=== PATIENT | female | born 1990 | race Caucasian/White ===

== ENCOUNTER 2017-03-27 20:35 | Emergency (ER) | payer BC ==
--- NOTE | 2017-03-27 21:29 | EDM.PDOC ---
ED HPI ENT - General Chief Complaint: ENT Problem Stated Complaint: TOOTH PAIN Time Seen by Provider: 03/27/17 21:09 Source of Information: Reports: Patient History Limitations: Reports: No limitations - History of Present Illness INITIAL COMMENTS - FREE TEXT/NARRATIVE: History of present illness: [26-year-old female comes in complaining of dental pain. Patient was seen by the dentist and had 2 fillings with subsequent fracturing of the second one to an elective the second tooth. Patient continued to have pain and went back to the dentist where she was subsequently treated or dry socket and referred to and an deposit clerk] Review of systems: As per history of present illness and below otherwise all systems reviewed and negative. Past medical history: As per history of present illness and as reviewed below otherwise noncontributory. Surgical history: As per history of present illness and as reviewed below otherwise noncontributory. Social history: No reported history of drug or alcohol abuse. Family history: As per history of present illness and as reviewed below otherwise noncontributory. Physical exam: HEENT: Atraumatic, normocephalic, pupils reactive, negative for conjunctival pallor or scleral icterus, mucous membranes moist, throat clear, neck supple, nontender, trachea midline. Lungs: Clear to auscultation, breath sounds equal bilaterally, chest nontender. Heart: S1S2, regular, negative for clicks, rubs, or JVD. Abdomen: Soft, nondistended, nontender. Negative for masses or hepatosplenomegaly. Negative for costovertebral tenderness. Pelvis: Stable nontender. Genitourinary: Deferred. Rectal: Deferred. Extremities: Atraumatic, negative for cords or calf pain. Neurovascular unremarkable. Neuro: Awake, alert, oriented. Cranial nerves II through XII unremarkable. Cerebellum unremarkable. Motor and sensory unremarkable throughout. Exam nonfocal. Global assessment was benign save obvious tooth missing at 30 a partial fracture with repair on . Area 30 noted to look like it had remnants of tooth or filling matter in them M. swollen and angry patient indicates she is currently on doxycycline per the dentist. Diagnostics: [] Therapeutics: [] Impression: [Dental pain] Plan: [Payment coverage until it can be seen by dentist Tuesday or Tuesday] Definitive disposition and diagnosis as appropriate pending reevaluation and review of above. - Related Data Allergies/ADRs: Allergies Allergy/AdvReac Type Severity Reaction Status Date / Time Penicillins Allergy Rash Verified 03/27/17 20:42 Home Meds: Home Meds Clindamycin HCl [Cleocin HCl] 600 mg PO TID 03/27/17 [History] Past Medical History - Past Health History Medical/Surgical History: Denies Medical/Surgical History HEENT History: Reports: Other (see below) Other HEENT History: wears glasses Cardiovascular History: Reports: None Respiratory History: Reports: None Gastrointestinal History: Reports: GERD Genitourinary History: Reports: Renal calculus, STD, UTI, recurrent, Other (see below) Other Genitourinary History: HPV Musculoskeletal History: Reports: None Neurological History: Reports: None Psychiatric History: Reports: None Endocrine/Metabolic History: Reports: Obesity/BMI 30+ Hematologic History: Reports: None Immunologic History: Reports: None Oncologic (Cancer) History: Reports: None Dermatologic History: Reports: None - Past Surgical History Head Surgeries/Procedures: Reports: None GI Surgical History: Reports: Cholecystectomy, Hernia, abdominal Other GI Surgeries/Procedures: perirectal abcess x2 Social & Family History - Family History Family Medical History: Noncontributory - Tobacco Use Smoking Status *Q: Never Smoker - Caffeine Use Caffeine Use: Reports: Coffee - Recreational Drug Use Recreational Drug Use: No Drug Use in Last 12 Months: No Recreational Drug Type: Reports: Marijuana/Hashish ED ROS ENT - Review of Systems Review Of Systems: See Below (See history of present illness) ED EXAM, ENT - Physical Exam Exam: See Below (See history of present illness) Course - Vital Signs Last Recorded V/S: Last Vital Signs Temp 36.4 C 03/27/17 20:43 Pulse 69 03/27/17 20:43 Resp 20 03/27/17 20:43 BP 157/107 H 03/27/17 20:43 Pulse Ox 96 03/27/17 20:43 Departure - Departure Time of Disposition: 21:29 Disposition: Home, Self-Care 01 Condition: good Clinical Impression: Pain, dental Forms: ED Department Discharge Additional Instructions: The following information is given to patients seen in the emergency department who are being discharged to home. This information is to outline your options for follow-up care. We provide all patients seen in our emergency department with a follow-up referral. The need for follow-up, as well as the timing and circumstances, are variable depending upon the specifics of your emergency department visit. If you don't have a primary care physician on staff, we will provide you with a referral. We always advise you to contact your personal physician following an emergency department visit to inform them of the circumstance of the visit and for follow-up with them and/or the need for any referrals to a consulting specialist. The emergency department will also refer you to a specialist when appropriate. This referral assures that you have the opportunity for follow-up care with a specialist. All of these measure are taken in an effort to provide you with optimal care, which includes your follow-up. Under all circumstances we always encourage you to contact your private physician who remains a resource for coordinating your care. When calling for follow-up care, please make the office aware that this follow-up is from your recent emergency room visit. If for any reason you are refused follow-up, please contact the [facility] Emergency Department at and asked to speak to the emergency department charge nurse. Take pain medication as discussed Continue on the antibiotics as prescribed Followup with dentist and or dental specialist as discussed is imperative for closure of this problem. If definitive treatment is not obtained we'll continue to have pain and potential for infection. Followup with ED as needed as discussed
[2017-03-27] MEDS ORDERED: Benzocaine 20% Topical Spray UD MUCMEM ONE (21:34)
[2017-03-27] MEDS ORDERED: Lidocaine 2% Viscous Solution 15 ML Cup PO ONE (21:34)
[2017-03-27 21:42] VITALS: BP 139/97
== END 2017-03-27 21:40 | disposition home or self-care (01) ==
LOC: MW.ED 20:35
DX: K08.89 Other specified disorders of teeth and supporting structures (principal); K21.9 Gastro-esophageal reflux disease without esophagitis; E66.9 Obesity, unspecified; Z87.440 Personal history of urinary (tract) infections; Z88.0 Allergy status to penicillin
CPT/HCPCS: 99282; A9270; 99283

== ENCOUNTER 2017-03-31 22:31 | Emergency (ER) | payer BC ==
[2017-03-31 23:02] VITALS: BP 151/91
--- NOTE | 2017-03-31 23:46 | EDM.PDOC ---
ED HPI RENAL/ - General Chief Complaint: Flank Pain Stated Complaint: PT HAS UTI Time Seen by Provider: 03/31/17 23:00 Source of Information: Reports: Patient History Limitations: Reports: No limitations - History of Present Illness INITIAL COMMENTS - FREE TEXT/NARRATIVE: HISTORY AND PHYSICAL: History of present illness: [6-year-old female with no prior history of kidney stone now presents emergency department complaining of urinary frequency. Patient thinks she has a urinary tract infection which she has had before and is familiar with. she also describes bilateral low back pain she is concerned she might have a kidney infection. Denies fevers chills sweats or shaking chills. Low back is more sore with movement. She is not having colicky pain. Denies abdominal or pelvic pain. No vaginal discharge or suprapubic pain.] Review of systems: As per history of present illness and below otherwise all systems reviewed and negative. Past medical history: As per history of present illness and as reviewed below otherwise noncontributory. Surgical history: As per history of present illness and as reviewed below otherwise noncontributory. Social history: No reported history of drug or alcohol abuse. Family history: As per history of present illness and as reviewed below otherwise noncontributory. Physical exam: HEENT: Atraumatic, normocephalic, pupils reactive, negative for conjunctival pallor or scleral icterus, mucous membranes moist, throat clear, neck supple, nontender, trachea midline. Lungs: Clear to auscultation, breath sounds equal bilaterally, chest nontender. Heart: S1S2, regular, negative for clicks, rubs, or JVD. Abdomen: Soft, nondistended, nontender. Negative for masses or hepatosplenomegaly. Mild bilateral lumbar tenderness. No spinal T. Genitourinary: Deferred. Rectal: Deferred. Extremities: Atraumatic, negative for cords or calf pain. Neurovascular unremarkable. Neuro: Awake, alert, oriented. Cranial nerves grossly unremarkable. Cerebellum unremarkable. Motor and sensory unremarkable throughout. Exam nonfocal. Diagnostics: [CT urinary tract with multiple punctate intrarenal stones but no ureterolithiasis or urinary tract abnormality other] Therapeutics: [] Impression: [] Plan: [Signs and symptoms consistent with possible UTI/pyelonephritis versus less likely ureterolithiasis with renal colic. UA negative for infection or hematuria. CT negative for ureterolithiasis. Default diagnosis musculoskeletal low back pain as patient is benign abdomen and pelvis and no vaginal discharge. Not . Patient aware to use NSAIDs and followup with PCP. No further workup or treatment indicated. Patient agrees with outpatient followup. Strict return precautions given] Definitive disposition and diagnosis as appropriate pending reevaluation and review of above. - Related Data Allergies/ADRs: Allergies Allergy/AdvReac Type Severity Reaction Status Date / Time Penicillins Allergy Rash Verified 03/31/17 22:59 Home Meds: Home Meds Clindamycin HCl [Cleocin HCl] 600 mg PO TID 03/27/17 [History] oxyCODONE HCl/Acetaminophen [Percocet 5-325 mg Tablet] 1 tab PO ASDIRECTED 03/31 [History] Past Medical History - Past Health History Medical/Surgical History: Denies Medical/Surgical History HEENT History: Reports: Other (see below) Other HEENT History: wears glasses Cardiovascular History: Reports: None Respiratory History: Reports: None Gastrointestinal History: Reports: GERD Genitourinary History: Reports: Renal calculus, STD, UTI, recurrent, Other (see below) Other Genitourinary History: HPV CONSERVATION COORDINATOR History: Reports: None Musculoskeletal History: Reports: None Neurological History: Reports: None Psychiatric History: Reports: None Endocrine/Metabolic History: Reports: Obesity/BMI 30+ Hematologic History: Reports: None Immunologic History: Reports: None Oncologic (Cancer) History: Reports: None Dermatologic History: Reports: None - Infectious Disease History Infectious Disease History: Reports: None - Past Surgical History Head Surgeries/Procedures: Reports: None GI Surgical History: Reports: Cholecystectomy, Hernia, abdominal Other GI Surgeries/Procedures: perirectal abcess x2 Social & Family History - Family History Family Medical History: Noncontributory - Tobacco Use Smoking Status *Q: Never Smoker - Caffeine Use Caffeine Use: Reports: Coffee - Recreational Drug Use Recreational Drug Use: No Drug Use in Last 12 Months: No Recreational Drug Type: Reports: Marijuana/Hashish ED ROS GENERAL - Review of Systems Review Of Systems: See Below (Per history of present illness) ED EXAM, RENAL/ - Physical Exam Exam: See Below (History of present illness) Course - Vital Signs Last Recorded V/S: Last Vital Signs Temp 36.1 C 03/31/17 22:40 Pulse 69 03/31/17 22:40 Resp 16 03/31/17 22:40 BP 151/91 H 03/31/17 22:40 Pulse Ox 98 03/31/17 22:40 - Orders/Labs/Meds Orders: Active Orders 24 hr Category Date Time Status Abdomen Pelvis wo Cont [CT] Stat Exams 03/31/17 23:34 Taken Labs: Laboratory Tests 03/31/17 03/31/17 Range/Units 22:50 22:50 Urine Color YELLOW Urine Appearance CLEAR Urine pH 6.0 (5.0-8.0) Ur Specific [place] <= 1.005 (1.001-1.035) Urine Protein NEGATIVE (NEGATIVE) mg/dL Urine Glucose (UA) NEGATIVE (NEGATIVE) mg/dL Urine Ketones NEGATIVE (NEGATIVE) mg/dL Urine Occult Blood TRACE-INTACT (NEGATIVE) Urine Nitrite NEGATIVE (NEGATIVE) Urine Bilirubin NEGATIVE (NEGATIVE) Urine Urobilinogen 0.2 (<2.0) EU/dL Ur Leukocyte Esterase NEGATIVE (NEGATIVE) Urine RBC 0-2 (0-2/HPF) Urine WBC 0-1 (0-5/HPF) Ur Epithelial Cells OCCASIONAL (NONE-FEW) Urine Bacteria RARE (NEGATIVE) Urine HCG, Qual NEGATIVE (NEGATIVE) Departure - Departure Time of Disposition: 00:33 Disposition: Home, Self-Care 01 Condition: good Clinical Impression: Low back pain, Renal lithiasis Instructions: Kidney Stones, [id number] Referrals: PCP,None [Primary Care Provider] - Forms: ED Department Discharge Additional Instructions: It appears that your pain today as a result of musculoskeletal low back pain. Take 800 mg ibuprofen every 6 hours as needed for pain. You do have some very small kidney stones in both kidneys but they do not cause pain while in the kidneys and there is no evidence that any of these are passing. Followup with your DrMaria Alejandra in one to 2 days and return immediately for new severe or worsening symptoms - My Orders Last 24 Hours: My Active Orders 03/31/17 23:34 Abdomen Pelvis wo Cont [CT] Stat - Assessment/Plan Last 24 Hours: My Active Orders 03/31/17 23:34 Abdomen Pelvis wo Cont [CT] Stat
--- NOTE | 2017-04-01 16:16 | CT ---
EXAM DATE: 03/31/17 PATIENT'S AGE: 26 Patient: HIREN MATTHEWS Facility: [place], [place] Site . Site : 1990 Study: CT Abdomen/Pelvis WO CONT [id number]/5/2017 12:00:08 AM Ordering Physician: Will Sparks Final Report: INDICATION: Right flank pain with dysuria TECHNIQUE: CT abdomen and pelvis without contrast. COMPARISON: 09/21/2016 FINDINGS: Lower chest: Unremarkable. Liver: Unremarkable. Spleen: Unremarkable. Pancreas: Unremarkable. Gallbladder and bile ducts: Evidence of prior cholecystectomy. Kidneys: Stable punctate nonobstructing bilateral renal calculi. Adrenal glands: Unremarkable. GI tract: Unremarkable. Appendix is normal. Vascular structures: Unremarkable. Lymph nodes: Unremarkable. Miscellaneous: Fat containing umbilical hernia. No free air or significant free fluid. Pelvic Organs: Unremarkable. Bones: Unremarkable for age. IMPRESSION: Stable bilateral punctate nonobstructing renal calculi. No hydronephrosis or hydroureter. Normal urinary bladder. Evidence of prior cholecystectomy. Dictated by Neftali Bellamy MD @ 04/01/2017 12:19:53 AM Dictated by: Neftali Bellamy MD @ 04/01/2017 00:20:03 (Electronic Signature) Report Signed by Proxy. [facility]
== END 2017-04-01 00:44 | disposition home or self-care (01) ==
LOC: MW.ED 22:31
DX: N20.0 Calculus of kidney (principal); E66.9 Obesity, unspecified; K21.9 Gastro-esophageal reflux disease without esophagitis; Z88.0 Allergy status to penicillin; Z90.49 Acquired absence of other specified parts of digestive tract; Z68.41 Body mass index [BMI] 40.0-44.9, adult
CPT/HCPCS: 74176; 74176-26; 81001; 81025; 99283; 99284-25

== ENCOUNTER 2018-05-06 17:47 | Emergency (ER) | payer BC ==
[2018-05-06] MEDS ORDERED: Sodium Chloride 0.9% 1,000 ML IV ONE (18:12)
--- NOTE | 2018-05-06 18:14 | EDM.PDOC ---
ED HPI GENERAL MEDICAL PROBLEM - General Chief Complaint: Back Pain or Injury Stated Complaint: DIZZY AND BACK PAIN Time Seen by Provider: 05/06/18 18:09 - History of Present Illness INITIAL COMMENTS - FREE TEXT/NARRATIVE: HISTORY AND PHYSICAL: History of present illness: Patient 27-year-old female presents with a concern of cough and cold symptoms and discomfort with urination she had an episode of near-syncope when in the bathroom today she denies chest pain palpitations or associated trauma. No fever or chills. Review of systems: As per history of present illness and below otherwise all systems reviewed and negative. Past medical history: As per history of present illness and as reviewed below otherwise noncontributory. Surgical history: As per history of present illness and as reviewed below otherwise noncontributory. Social history: No reported history of drug or alcohol abuse. Family history: As per history of present illness and as reviewed below otherwise noncontributory. Physical exam: HEENT: Atraumatic, normocephalic, pupils reactive, negative for conjunctival pallor or scleral icterus, mucous membranes moist, throat clear, neck supple, nontender, trachea midline. Lungs: Clear to auscultation, breath sounds equal bilaterally, chest nontender. Heart: S1S2, regular, negative for clicks, rubs, or JVD. Abdomen: Soft, nondistended, nontender. Negative for masses or hepatosplenomegaly. Negative for costovertebral tenderness. Pelvis: Stable nontender. Genitourinary: Deferred. Rectal: Deferred. Extremities: Atraumatic, negative for cords or calf pain. Neurovascular unremarkable. Neuro: Awake, alert, oriented. Cranial nerves II through XII unremarkable. Cerebellum unremarkable. Motor and sensory unremarkable throughout. Exam nonfocal. Diagnostics: CBC CMP troponin chest x-ray UA hCG urine drug screen urine culture and sensitivity EKG orthostatic vitals Therapeutics: Normal saline 1 L bolus Impression: #1 pneumonitis #2 near-syncope probable vasovagal episode #3 rule out urinary tract infection Definitive disposition and diagnosis as appropriate pending reevaluation and review of above. Lower Back Pain Score (Numeric/FACES): 7 - Related Data Allergies Allergy/AdvReac Type Severity Reaction Status Date / Time Penicillins Allergy Rash Verified 05/06/18 17:59 Home Meds: Home Meds . 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 Musculoskeletal History: Reports: None Neurological History: Reports: None Psychiatric History: Reports: None Endocrine/Metabolic History: Reports: Obesity/BMI 30+ Hematologic History: Reports: None Immunologic History: Reports: None Oncologic (Cancer) History: Reports: None Dermatologic History: Reports: None - Infectious Disease History Infectious Disease History: Reports: None - Past Surgical History Head Surgeries/Procedures: Reports: None GI Surgical History: Reports: Cholecystectomy, Hernia, Abdominal Social & Family History - Family History Family Medical History: Noncontributory - Tobacco Use Smoking Status *Q: Never Smoker Second Hand Smoke Exposure: No - Caffeine Use Caffeine Use: Reports: None - Recreational Drug Use Recreational Drug Use: No ED ROS GENERAL - Review of Systems Review Of Systems: ROS reveals no pertinent complaints other than HPI. ED EXAM, GENERAL - Physical Exam Exam: See Below (Dictation) Course - Vital Signs Last Recorded V/S: Last Vital Signs Temp 36.2 C 05/06/18 17:57 Pulse 56 L 05/06/18 17:57 Resp 18 05/06/18 17:57 BP 131/80 05/06/18 17:57 Pulse Ox 93 L 05/06/18 17:57 - Orders/Labs/Meds Orders: Active Orders 24 hr Category Date Time Status EKG Documentation Completion [RC] STAT Care 05/06/18 18:11 Active Chest 1V Frontal [CR] Stat Exams 05/06/18 18:12 Taken CULTURE URINE [RM] Stat Lab 05/06/18 18:24 Ordered DRUG SCREEN, URINE [URCHEM] Stat Lab 05/06/18 18:10 Ordered HCG QUANTITATIVE,SERUM [CHEM] Stat Lab 05/06/18 18:18 Received UA W/MICROSCOPIC [URIN] Stat Lab 05/06/18 18:10 Ordered Labs: Laboratory Tests 05/06/18 05/06/18 05/06/18 Range/Units 18:10 18:10 18:18 WBC 9.27 (4.0-11.0) K/uL RBC 5.49 (4.30-5.90) M/uL Hgb 14.7 (12.0-16.0) g/dL Hct 43.7 (36.0-46.0) % MCV 79.6 L (80.0-98.0) fL MCH 26.8 L (27.0-32.0) pg MCHC 33.6 (31.0-37.0) g/dL RDW Std Deviation 39.4 (28.0-62.0) fl RDW Coeff of Zac 14 (11.0-15.0) % Plt Count 271 (150-400) K/uL MPV 9.60 (7.40-12.00) fL Neut % (Auto) 71.2 (48.0-80.0) % Lymph % (Auto) 16.4 (16.0-40.0) % [place] % (Auto) 7.7 (0.0-15.0) % Eos % (Auto) 4.3 (0.0-7.0) % Baso % (Auto) 0.4 (0.0-1.5) % Neut # (Auto) 6.6 H (1.4-5.7) K/uL Lymph # (Auto) 1.5 (0.6-2.4) K/uL [place] # (Auto) 0.7 (0.0-0.8) K/uL Eos # (Auto) 0.4 (0.0-0.7) K/uL Baso # (Auto) 0.0 (0.0-0.1) K/uL Nucleated RBC % 0.0 /100WBC Nucleated RBCs # 0 K/uL Sodium (136-145) mmol/L Potassium (3.5-5.1) mmol/L Chloride (98-107) mmol/L Carbon Dioxide (21.0-32.0) mmol/L BUN (7.0-18.0) mg/dL Creatinine (0.6-1.0) mg/dL Est Cr Clr Drug Dosing mL/min Estimated GFR (MDRD) ml/min Glucose (74-106) mg/dL Calcium (8.5-10.1) mg/dL Total Bilirubin (0.2-1.0) mg/dL AST (15-37) IU/L ALT (14-63) IU/L Alkaline Phosphatase (46-116) U/L Troponin I (0.000-0.056) ng/mL Total Protein (6.4-8.2) g/dL Albumin (3.4-5.0) g/dL Globulin (2.0-3.5) g/dL Albumin/Globulin Ratio (1.3-2.8) Urine Color YELLOW Urine Appearance SLT CLOUDY Urine pH 6.0 (5.0-8.0) Ur Specific [place] 1.020 (1.001-1.035) Urine Protein NEGATIVE (NEGATIVE) mg/dL Urine Glucose (UA) NEGATIVE (NEGATIVE) mg/dL Urine Ketones NEGATIVE (NEGATIVE) mg/dL Urine Occult Blood NEGATIVE (NEGATIVE) Urine Nitrite NEGATIVE (NEGATIVE) Urine Bilirubin NEGATIVE (NEGATIVE) Urine Urobilinogen 0.2 (<2.0) EU/dL Ur Leukocyte Esterase SMALL (NEGATIVE) Urine RBC 0-2 (0-2/HPF) Urine WBC 0-4 (0-5/HPF) Ur Epithelial Cells MODERATE (NONE-FEW) Urine Bacteria 1+ H (NEGATIVE) Urinalysis Comment Urine Opiates Screen NEGATIVE (NEGATIVE) Ur Oxycodone Screen NEGATIVE (NEGATIVE) Urine Methadone Screen NEGATIVE (NEGATIVE) Ur Barbiturates Screen NEGATIVE (NEGATIVE) Ur Phencyclidine Scrn NEGATIVE (NEGATIVE) Ur Amphetamine Screen NEGATIVE (NEGATIVE) U Methamphetamines Scrn NEGATIVE (NEGATIVE) U Benzodiazepines Scrn NEGATIVE (NEGATIVE) U Cocaine Metab Screen NEGATIVE (NEGATIVE) U Marijuana (THC) Screen NEGATIVE (NEGATIVE) 05/06/18 Range/Units 18:18 WBC (4.0-11.0) K/uL RBC (4.30-5.90) M/uL Hgb (12.0-16.0) g/dL Hct (36.0-46.0) % MCV (80.0-98.0) fL MCH (27.0-32.0) pg MCHC (31.0-37.0) g/dL RDW Std Deviation (28.0-62.0) fl RDW Coeff of Zac (11.0-15.0) % Plt Count (150-400) K/uL MPV (7.40-12.00) fL Neut % (Auto) (48.0-80.0) % Lymph % (Auto) (16.0-40.0) % [place] % (Auto) (0.0-15.0) % Eos % (Auto) (0.0-7.0) % Baso % (Auto) (0.0-1.5) % Neut # (Auto) (1.4-5.7) K/uL Lymph # (Auto) (0.6-2.4) K/uL [place] # (Auto) (0.0-0.8) K/uL Eos # (Auto) (0.0-0.7) K/uL Baso # (Auto) (0.0-0.1) K/uL Nucleated RBC % /100WBC Nucleated RBCs # K/uL Sodium 138 (136-145) mmol/L Potassium 3.8 (3.5-5.1) mmol/L Chloride 103 (98-107) mmol/L Carbon Dioxide 26.1 (21.0-32.0) mmol/L BUN 10 (7.0-18.0) mg/dL Creatinine 1.0 (0.6-1.0) mg/dL Est Cr Clr Drug Dosing 81.45 mL/min Estimated GFR (MDRD) > 60.0 ml/min Glucose 102 (74-106) mg/dL Calcium 8.8 (8.5-10.1) mg/dL Total Bilirubin 0.5 (0.2-1.0) mg/dL AST 19 (15-37) IU/L ALT 35 (14-63) IU/L Alkaline Phosphatase 103 (46-116) U/L Troponin I < 0.050 (0.000-0.056) ng/mL Total Protein 7.1 (6.4-8.2) g/dL Albumin 3.2 L (3.4-5.0) g/dL Globulin 3.9 H (2.0-3.5) g/dL Albumin/Globulin Ratio 0.8 L (1.3-2.8) Urine Color Urine Appearance Urine pH (5.0-8.0) Ur Specific [place] (1.001-1.035) Urine Protein (NEGATIVE) mg/dL Urine Glucose (UA) (NEGATIVE) mg/dL Urine Ketones (NEGATIVE) mg/dL Urine Occult Blood (NEGATIVE) Urine Nitrite (NEGATIVE) Urine Bilirubin (NEGATIVE) Urine Urobilinogen (<2.0) EU/dL Ur Leukocyte Esterase (NEGATIVE) Urine RBC (0-2/HPF) Urine WBC (0-5/HPF) Ur Epithelial Cells (NONE-FEW) Urine Bacteria (NEGATIVE) Urinalysis Comment Urine Opiates Screen (NEGATIVE) Ur Oxycodone Screen (NEGATIVE) Urine Methadone Screen (NEGATIVE) Ur Barbiturates Screen (NEGATIVE) Ur Phencyclidine Scrn (NEGATIVE) Ur Amphetamine Screen (NEGATIVE) U Methamphetamines Scrn (NEGATIVE) U Benzodiazepines Scrn (NEGATIVE) U Cocaine Metab Screen (NEGATIVE) U Marijuana (THC) Screen (NEGATIVE) Meds: Medications Discontinued Medications Generic Name Dose Route Start Last Admin Trade Name Freq PRN Reason Stop Dose Admin Sodium Chloride 1,000 mls @ 999 mls/hr 05/06/18 18:12 05/06/18 18:21 Normal Saline IV 05/06/18 19:12 999 mls/hr STAT ONE Administration Departure - Departure Time of Disposition: 19:20 Disposition: Home, Self-Care 01 Condition: Good Clinical Impression: Vasovagal episode, Tracheobronchitis - Discharge Information Referrals: PCP,None [Primary Care Provider] - Forms: ED Department Discharge Additional Instructions: The following information is given to patients seen in the emergency department who are being discharged to home. This information is to outline your options for follow-up care. We provide all patients seen in our emergency department with a follow-up referral. The need for follow-up, as well as the timing and circumstances, are variable depending upon the specifics of your emergency department visit. If you don't have a primary care physician on staff, we will provide you with a referral. We always advise you to contact your personal physician following an emergency department visit to inform them of the circumstance of the visit and for follow-up with them and/or the need for any referrals to a consulting specialist. The emergency department will also refer you to a specialist when appropriate. This referral assures that you have the opportunity for followup care with a specialist. All of these measure are taken in an effort to provide you with optimal care, which includes your followup. Under all circumstances we always encourage you to contact your private physician who remains a resource for coordinating your care. When calling for followup care, please make the office aware that this follow-up is from your recent emergency room visit. If for any reason you are refused follow-up, please contact the [facility] emergency department at and asked to speak to the emergency department charge nurse. The overall as prescribed push fluids follow up primary medical doctor as needed as discussed and return as needed as discussed - My Orders Last 24 Hours: My Active Orders 05/06/18 18:10 DRUG SCREEN, URINE [URCHEM] Stat UA W/MICROSCOPIC [URIN] Stat 05/06/18 18:11 EKG Documentation Completion [RC] STAT 05/06/18 18:12 Chest 1V Frontal [CR] Stat 05/06/18 18:18 HCG QUANTITATIVE,SERUM [CHEM] Stat 05/06/18 18:24 CULTURE URINE [RM] Stat - Assessment/Plan Last 24 Hours: My Active Orders 05/06/18 18:10 DRUG SCREEN, URINE [URCHEM] Stat UA W/MICROSCOPIC [URIN] Stat 05/06/18 18:11 EKG Documentation Completion [RC] STAT 05/06/18 18:12 Chest 1V Frontal [CR] Stat 05/06/18 18:18 HCG QUANTITATIVE,SERUM [CHEM] Stat 05/06/18 18:24 CULTURE URINE [RM] Stat
[2018-05-06 18:52] LABS: CHLORIDE,CL 103 mmol/L (98-107); SODIUM,NA 138 mmol/L (136-145)
[2018-05-06 19:44] VITALS: BP 151/99
--- NOTE | 2018-05-08 14:49 | CR ---
EXAM DATE: 05/06/18 PATIENT'S AGE: 27 Patient: HIREN CASSIE Facility: [place], [place] Site . Site : 1990 Study: XRay Chest [id number]/9/2018 7:18:15 PM Ordering Physician: Puja Sparks Final Report: INDICATION: PAIN AND SHORTNESS OF BREATH. TECHNIQUE: Chest radiograph 1 view COMPARISON: None FINDINGS: Cardiovascular and mediastinum: The heart silhouette is normal in size and morphology. The mediastinum is normal in appearance. Lungs and pleural spaces: Both lungs are unremarkable in appearance. No sign of pleural effusion seen. No pneumothorax is identified. Bones and soft tissues: No significant findings. IMPRESSION: 1. No acute cardiopulmonary disease is seen. Dictated by Viraj Rosen MD @ 05/06/2018 7:44:24 PM Dictated by: Viraj Rosen MD @ 05/06/2018 19:44:30 (Electronic Signature) Report Signed by Proxy. [facility]
== END 2018-05-06 19:47 | disposition home or self-care (01) ==
LOC: MW.ED 17:47
DX: J18.9 Pneumonia, unspecified organism (principal); J40 Bronchitis, not specified as acute or chronic; R55 Syncope and collapse; Z88.0 Allergy status to penicillin
CPT/HCPCS: 36415; 71045; 80053; 80305; 81001; 84484; 84702; 85025; 87086; 93005; 96360; 99284; J7040; 99283

== ENCOUNTER 2018-07-08 10:47 | Emergency (ER) | payer BC ==
--- NOTE | 2018-07-08 10:51 | EDM.PDOC ---
ED HPI GENERAL MEDICAL PROBLEM - General Stated Complaint: PAIN IN LOWER BACK. Time Seen by Provider: 07/08/18 10:50 Source of Information: Reports: Patient History Limitations: Reports: No Limitations - History of Present Illness INITIAL COMMENTS - FREE TEXT/NARRATIVE: HISTORY AND PHYSICAL: History of present illness: Patient is a 27-year-old female who presents to the emergency room today with complaints of left low back pain that radiates down the left gluteal all the way into her ankle. She was seen in the emergency room on 07/04/2018 for this pain and was diagnosed with sciatica. She was given prescription for tramadol and Flexeril which she states has not improved her discomfort. She states "I'm at a point where he just can't stand it anymore". She has not fallen, injured or had any trauma to the affected area. Has been eating and drinking appropriately. No change in urinary or bowel habits. Denies any fever, chills, chest pain, shortness of breath or cough. Review of systems: As per history of present illness and below otherwise all systems reviewed and negative. Past medical history: As per history of present illness and as reviewed below otherwise noncontributory. Surgical history: As per history of present illness and as reviewed below otherwise noncontributory. Social history: No reported history of drug or alcohol abuse. Family history: As per history of present illness and as reviewed below otherwise noncontributory. Physical exam: General: Well-developed and well-nourished 27-year-old female. Alert and oriented. Nontoxic appearing and in no acute distress. HEENT: Atraumatic, normocephalic, pupils equal and reactive bilaterally, negative for conjunctival pallor or scleral icterus, mucous membranes moist, throat clear, neck supple, nontender, trachea midline. No drooling or trismus noted. No meningeal signs Lungs: Clear to auscultation, breath sounds equal bilaterally, chest nontender. Heart: S1S2, regular rate and rhythm without overt murmur Abdomen: Soft, nondistended, nontender. Negative for masses or hepatosplenomegaly. Negative for costovertebral tenderness. Pelvis: Stable nontender. Genitourinary: Deferred. Rectal: Deferred. Skin: Intact, warm, dry. No lesions or rashes noted. Extremities: Atraumatic, negative for cords or calf pain. Neurovascular unremarkable. C-Spine/Back: No pinpoint vertebral tenderness upon palpation. No crepitus, step -offs or obvious deformities. She does have some paraspinous muscle discomfort with palpation to left lumbar region into the left glute. No urinary or fecal incontinence. Denies any numbness or tingling to her distal extremities. Patient is ambulatory into the emergency room. Able to walk on heels and toes without difficulty. Neuro: Awake, alert, oriented. Cranial nerves II through XII unremarkable. Cerebellum unremarkable. Motor and sensory unremarkable throughout. Exam nonfocal. Notes: CT of the lumbar spine shows no fractures with normal height and alignment of the vertebral bodies. There is mild intravertebral disc [place] at L5-S1. This information was shared with the patient. She declines to give a urine at this time. Patient states she does have some improvement with the IM medications. Will discharge patient with supportive care measures. Diagnostics: UA, Urine (declines), lumbar CT Therapeutics: Dilaudid Prescription: Diclofenac 75mg BID [place] PRN (Disp #20) Medrol Dosepak Impression: Sciatica, Left Plan: 1. Rest and ice painful areas. Gentle stretching to the low back. Rest of flat firm surface. 2. Take medications as directed. Do not take any additional NSAIDs such as Ibuprofen or Aleve with the Diclofenac. Take with food. [place] may cause drowsiness, so do not take while driving or needing to be functioning outside of the house. 3. Follow up with your primary care provider in the next few days. Return to the ED as needed and as discussed. Definitive disposition and diagnosis as appropriate pending reevaluation and review of above. Left Lower Back Pain Score (Numeric/FACES): 10 - Related Data Allergies Allergy/AdvReac Type Severity Reaction Status Date / Time Penicillins Allergy Rash Verified 07/08/18 11:07 Home Meds: Home Meds Cyclobenzaprine [Flexeril] 10 mg PO BID PRN #12 tab 07/04/18 [Rx] traMADol HCl [Tramadol HCl] 50 mg PO Q6H PRN #16 tablet 07/04/18 [Rx] Past Medical History - Past Health History Medical/Surgical History: Denies Medical/Surgical History HEENT History: Reports: Other (See Below) Other HEENT History: wears glasses Cardiovascular History: Reports: None Respiratory History: Reports: None Gastrointestinal History: Reports: GERD Genitourinary History: Reports: Renal Calculus, STD, UTI, Recurrent, Other (See Below) Other Genitourinary History: HPV 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 Musculoskeletal History: Reports: None Neurological History: Reports: None Psychiatric History: Reports: None Endocrine/Metabolic History: Reports: Obesity/BMI 30+ Hematologic History: Reports: None Immunologic History: Reports: None Oncologic (Cancer) History: Reports: None Dermatologic History: Reports: None - Infectious Disease History Infectious Disease History: Reports: None - Past Surgical History Head Surgeries/Procedures: Reports: None GI Surgical History: Reports: Cholecystectomy, Hernia, Abdominal, Other (See Below) Other GI Surgeries/Procedures: perirectal cyst x2 Social & Family History - Family History Family Medical History: Noncontributory Psychiatric: Reports: Bipolar, Schizophrenia - Caffeine Use Caffeine Use: Reports: Coffee, Energy Drinks, Soda, Tea ED ROS GENERAL - Review of Systems Review Of Systems: ROS reveals no pertinent complaints other than HPI. ED EXAM,LOWER BACK PAIN/INJURY - Physical Exam Exam: See Below (See dictation) Course - Vital Signs Last Recorded V/S: Last Vital Signs Temp 97.5 F 07/08/18 11:04 Pulse 80 07/08/18 11:04 Resp 18 07/08/18 11:04 BP 146/92 H 07/08/18 11:04 Pulse Ox 97 07/08/18 11:04 - Orders/Labs/Meds Orders: Active Orders 24 hr Category Date Time Status Lumbar Spine wo Cont [CT] Stat Exams 07/08/18 11:13 Taken UA W/MICROSCOPIC [URIN] Stat Lab 07/08/18 10:50 Ordered Meds: Medications Discontinued Medications Generic Name Dose Route Start Last Admin Trade Name Freq PRN Reason Stop Dose Admin Hydromorphone HCl 1 mg 07/08/18 11:13 07/08/18 11:23 Dilaudid IM 07/08/18 11:14 1 mg ONETIME ONE Administration Methylprednisolone Sodium Succinate 125 mg 07/08/18 11:59 Solu-Medrol IM 07/08/18 12:00 ONETIME ONE Departure - Departure Time of Disposition: 12:54 Disposition: Home, Self-Care 01 Clinical Impression: Sciatica, left side - Discharge Information Instructions: Sciatica, [id number] Referrals: PCP,None [Primary Care Provider] - Additional Instructions: The following information is given to patients seen in the emergency department who are being discharged to home. This information is to outline your options for follow-up care. We provide all patients seen in our emergency department with a follow-up referral. The need for follow-up, as well as the timing and circumstances, are variable depending upon the specifics of your emergency department visit. If you don't have a primary care physician on staff, we will provide you with a referral. We always advise you to contact your personal physician following an emergency department visit to inform them of the circumstance of the visit and for follow-up with them and/or the need for any referrals to a consulting specialist. The emergency department will also refer you to a specialist when appropriate. This referral assures that you have the opportunity for follow-up care with a specialist. All of these measure are taken in an effort to provide you with optimal care, which includes your follow-up. Under all circumstances we always encourage you to contact your private physician who remains a resource for coordinating your care. When calling for follow-up care, please make the office aware that this follow-up is from your recent emergency room visit. If for any reason you are refused follow-up, please contact the [facility] Emergency Department at and asked to speak to the emergency department charge nurse. [facility] [address] [place] [id number] 1. Rest and ice painful areas. Gentle stretching to the low back. Rest of flat firm surface. 2. Take medications as directed. Do not take any additional NSAIDs such as Ibuprofen or Aleve with the Diclofenac. Take with food. [place] may cause drowsiness, so do not take while driving or needing to be functioning outside of the house. 3. Follow up with your primary care provider in the next few days. Return to the ED as needed and as discussed. - My Orders Last 24 Hours: My Active Orders 07/08/18 10:50 UA W/MICROSCOPIC [URIN] Stat 07/08/18 11:13 Lumbar Spine wo Cont [CT] Stat - Assessment/Plan Last 24 Hours: My Active Orders 07/08/18 10:50 UA W/MICROSCOPIC [URIN] Stat 07/08/18 11:13 Lumbar Spine wo Cont [CT] Stat
[2018-07-08 11:07] VITALS: BP 146/92
[2018-07-08] MEDS ORDERED: HYDROmorphone 2 MG/ML SDV IM ONE (11:13)
[2018-07-08] MEDS ORDERED: methylPREDNISolone Sodium Succinate 125 MG/2 ML SDV IM ONE (11:59)
--- NOTE | 2018-07-10 17:01 | CT ---
EXAM DATE: 07/08/18 PATIENT'S AGE: 27 Patient: HIREN MATTHEWS Facility: [place], [place] Site . Site : 1990 Study: CT Spine Lumbar [id number]/11/2018 12:06:06 PM Ordering Physician: Doctor Nguyen Final Report: INDICATION: Low back pain, left-sided lumbar radiculopathy. TECHNIQUE: CT of the lumbar spine was performed according to standard protocol without intravenous contrast. COMPARISON: None available. FINDINGS: Mild levo curvature of the lumbar spine is likely positional. Sagittal and is normal. There are no compression fractures or suspicious lytic or blastic lesions. There are multiple, nonobstructive stones in both kidneys. L1-2: There is a mild disc bulge. There is no facet arthropathy. There is no spinal canal or neural foraminal stenosis. L2-3 There is a mild disk bulge. There is no facet arthropathy. There is no spinal canal or neural foraminal stenosis. L3-4: There is a mild disk bulge. There is no facet arthropathy. There is mild left neural foraminal stenosis. There is no spinal canal stenosis. L4-5: There is a moderate disc bulge. There is mild facet arthropathy. There is moderate spinal canal stenosis. There is mild right neural foraminal stenosis. L5-S1: There is a large disc osteophyte complex. There is mild facet arthropathy. There is moderate to severe spinal canal stenosis. There is moderate bilateral foraminal stenosis. IMPRESSION: 1. L4-5 moderate spinal canal stenosis secondary to moderate disk bulge and mild facet arthropathy 2. L5-S1 moderate to severe spinal canal stenosis and moderate bilateral neural foraminal stenosis secondary to large disc osteophyte complex and mild facet arthropathy Please note that all CT scans at this facility use dose modulation, iterative reconstruction, and/or weight-based dosing when appropriate to reduce radiation dose to as low as reasonably achievable. Dictated by Pedro Bobby MD @ Jul 08 2018 8:21PM (Electronic Signature) Report Signed by Proxy. [facility]
== END 2018-07-08 13:15 | disposition home or self-care (01) ==
LOC: MW.ED 10:47
DX: M54.42 Lumbago with sciatica, left side (principal); E66.9 Obesity, unspecified; Z88.0 Allergy status to penicillin
CPT/HCPCS: 72131; 81001; 96372; 99283; J1170; J2930

== ENCOUNTER 2019-03-06 06:22 | Day surgery (SDC) | payer BC ==
[2019-03-06] MEDS ORDERED: Lactated Ringers 1,000 ML IV SCH (06:45)
--- NOTE | 2019-03-06 06:57 | PCM.PREANE ---
Preanesthetic Assessment - Anesthesia/Transfusion/Family Hx Anesthesia History: Prior Anesthesia Without Reaction Family History of Anesthesia Reaction: No Transfusion History: No Prior Transfusion(s) - Review of Systems General: No Symptoms Pulmonary: No Symptoms Cardiovascular: No Symptoms Gastrointestinal: No Symptoms Neurological: No Symptoms Other: Reports: None - Physical Assessment Height: 5 ft 6.75 in Weight: 135.624 kg ASA Class: 2 Mental Status: Alert & Oriented x3 Airway Class: Mallampati = 2 Dentition: Reports: Normal Dentition Thyro-Mental Finger Breadths: 3 Mouth Opening Finger Breadths: 3 ROM/Head Extension: Full Lungs: Clear to Auscultation, Normal Respiratory Effort Cardiovascular: Regular Rate, Regular Rhythm - Allergies Allergies/Adverse Reactions: Allergies Allergy/AdvReac Type Severity Reaction Status Date / Time Penicillins Allergy Rash Verified 03/02/19 08:16 - Acknowledgements Anesthesia Type Planned: General Anesthesia Pt an Appropriate Candidate for the Planned Anesthesia: Yes Alternatives and Risks of Anesthesia Discussed w Pt/Guardian: Yes Pt/Guardian Understands and Agrees with Anesthesia Plan: Yes PreAnesthesia Questionnaire - Past Health History Medical/Surgical History: Denies Medical/Surgical History HEENT History: Reports: Other (See Below) Other HEENT History: wears glasses/contacts Cardiovascular History: Reports: None Respiratory History: Reports: None Gastrointestinal History: Reports: None Genitourinary History: Reports: Renal Calculus, STD, UTI, Recurrent, Other (See Below) Other Genitourinary History: HPV TOEING STOCKINGS History: Reports: None Musculoskeletal History: Reports: None Other Musculoskeletal History: SCIATICA Neurological History: Reports: None Psychiatric History: Reports: Anxiety Endocrine/Metabolic History: Reports: Obesity/BMI 30+ Hematologic History: Reports: None Immunologic History: Reports: None Oncologic (Cancer) History: Reports: None Dermatologic History: Reports: None - Infectious Disease History Infectious Disease History: Reports: None - Past Surgical History Head Surgeries/Procedures: Reports: None HEENT Surgical History: Reports: Oral Surgery Cardiovascular Surgical History: Reports: None Respiratory Surgical History: Reports: None GI Surgical History: Reports: Cholecystectomy, Hernia, Abdominal, Other (See Below) Other GI Surgeries/Procedures: perirectal cyst x2, cruz & umbilical hernia repair Female Surgical History: Reports: None Endocrine Surgical History: Reports: None Neurological Surgical History: Reports: None Oncologic Surgical History: Reports: None Dermatological Surgical History: Reports: None - SUBSTANCE USE Smoking Status *Q: Never Smoker Recreational Drug Use History: No - HOME MEDS Home Medications: Home Meds Ibuprofen 1 tab PO ASDIRECTED PRN 03/02/19 [History] - CURRENT (IN HOUSE) MEDS Current Meds: Current Medications Lactated Ringer's (Ringers, Lactated) 1,000 mls @ 100 mls/hr IV ASDIRECTED DANIEL
[2019-03-06] MEDS ORDERED: Propofol 200 MG/20 ML SDV ONE ×2 (07:28→08:13)
[2019-03-06] MEDS ORDERED: Midazolam 1 MG/ML 2 ML SDV ONE (07:28)
[2019-03-06] MEDS ORDERED: Ondansetron 4 MG/2 ML SDV ONE (07:28)
[2019-03-06] MEDS ORDERED: fentaNYL 250 MCG/5 ML SDV ONE (07:28)
[2019-03-06] MEDS ORDERED: Lidocaine 2% 5 ML SDV ONE (07:28)
[2019-03-06] MEDS ORDERED: Famotidine 20 MG/2 ML SDV ONE (07:47)
[2019-03-06] MEDS ORDERED: Ketorolac 30 MG/ML SDV ONE (08:45)
--- NOTE | 2019-03-06 09:10 | PCM.OPNOTE ---
- General Post-Op/Procedure Note Date of Surgery/Procedure: 03/06/19 Operative Procedure(s): Hysteroscopy D and C with myosure Findings: EUA showed normal sized anteverted uterus Hysteroscopy showed abundantly proliferative endometrium Bilateral ostia visualized Pre Op Diagnosis: Abnormal uterine bleeding Post-Op Diagnosis: Abnormal uterine bleeding Primary Surgeon: Isabell Jarvis Anesthesia Provider: Mony Friend Pathology: Endometrial curretting Fluid Replacement, Intraop: 3,200 EBL in mLs: 0 Complications: None Condition: Good
[2019-03-06] MEDS ORDERED: Albuterol 0.083% 2.5 MG/3 ML Neb Soln NEB PRN (09:21)
[2019-03-06] MEDS ORDERED: 50% Dextrose in Water 50 ML Syringe IVPUSH PRN (09:21)
[2019-03-06] MEDS ORDERED: EPINEPHrine 1 MG/ML 30 ML MDV IVPUSH PRN (09:21)
[2019-03-06] MEDS ORDERED: Naloxone 0.4 MG/ML Syringe IVPUSH PRN (09:21)
[2019-03-06] MEDS: fentaNYL 100 MCG/2 ML SDV IVPUSH PRN ×2 (09:29→09:36)
--- NOTE | 2019-03-06 09:48 | PCM.POSTAN ---
POST ANESTHESIA ASSESSMENT - MENTAL STATUS Mental Status: Alert, Oriented - RESPIRATORY Respiratory Status: Respiratory Rate WNL, Airway Patent, O2 Saturation Stable - CARDIOVASCULAR CV Status: Pulse Rate WNL, Blood Pressure Stable - GASTROINTESTINAL GI Status: No Symptoms - PAIN Pain Score: 4 - POST OP HYDRATION Hydration Status: Adequate & Stable
--- NOTE | 2019-03-06 10:45 | PCM48HPAN ---
Post Anesthesia Note - EVALUATION WITHIN 48HRS OF ANESTHETIC Vital Signs in Normal Range: Yes Patient Participated in Evaluation: Yes Respiratory Function Stable: Yes Airway Patent: Yes Cardiovascular Function Stable: Yes Hydration Status Stable: Yes Pain Control Satisfactory: Yes Nausea and Vomiting Control Satisfactory: Yes Mental Status Recovered: Yes Resp Rate: 14
[2019-03-06 11:28] VITALS: BP 132/85
--- NOTE | 2019-03-06 13:53 | OR ---
SURGEON: JARED RUVALCABA DATE OF PROCEDURE: 03/06/2019 PREOPERATIVE DIAGNOSIS: Abnormal uterine bleeding. POSTOPERATIVE DIAGNOSIS: Abnormal uterine bleeding. PROCEDURE: Dilatation and curettage, hysteroscopy with MyoSure. ESTIMATED BLOOD LOSS: Minimal. IV FLUIDS: 3200. FLUID DEFICIT: 1000 NS. FiNDINGS: Examination under anaesthesia showed normal sized uterus and cervix. Hysteroscopy showed abundantly proliferative endometrium BRIEF HISTORY: The patient is a 28-year-old para 0, who came in to the office complaining of abnormal uterine bleeding. She was bleeding for about a month. She had seen the provider previously that placed on norethindrone, Her bleeding was no controlled with medication. The patient was placed on cascade regimen however did not take it due to confusion about medication . She was taking Motrin, which improved her bleeding. She had a saline ultrasound that showed a posterior polyp. The patient was counseled for D and C, hysteroscopy that she agreed for. She was explained the risks, benefits, and alternatives and decided to proceed. DESCRIPTION OF PROCEDURE: The patient was taken to the operating room where general anesthesia was performed without difficulty. She was placed in the dorsal lithotomy position with the Navneet stirrups. She was prepared and draped in the normal usual fashion. A weighted speculum was placed in the posterior vagina and the cervix was grasped with the Allis forceps. The patient's cervix was dilated to accommodate the MyoSure hysteroscope. Hysteroscopy showed abundantly proliferative endometrium. D and C was done with MyoSure . Both ostia were now visualized. The tissue was sent for pathology. The MyoSure and hysteroscope were withdrawn. Gentle curretting was done with the size 4 currette. All instrument and pad counts were correct x2. The patient tolerated the procedure and was taken to the recovery room in stable condition. ANJU / RITA /[id number] RAVEN
== END 2019-03-06 10:53 | disposition home or self-care (01) ==
LOC: MW.SDS 06:22
PROVIDERS: ATTEND Obstetrics & Gynecology
DX: N84.0 Polyp of corpus uteri (principal); Z88.0 Allergy status to penicillin
CPT/HCPCS: 36415; 58558; 84703; 85027; 86850; 86900; 86901; J0131; J1885; J2001; J2250; J2405; J2704; J3010; J7120; 88305

== ENCOUNTER 2019-07-21 22:56 | Emergency (ER) | payer BC ==
--- NOTE | 2019-07-21 23:42 | EDM.PDOC ---
ED HPI GENERAL MEDICAL PROBLEM - General Chief Complaint: General Stated Complaint: PT SPOKE TO NURSE Time Seen by Provider: 07/21/19 23:29 - History of Present Illness INITIAL COMMENTS - FREE TEXT/NARRATIVE: HISTORY AND PHYSICAL: History of present illness: Patient's 28-year-old white female who presents requesting medical screening exam patient had a variety of nonspecific symptoms but what brought her in today related to some swelling she's had in her feet she is on her feet at work all day and noticed some swelling of her feet bilaterally seems to have improved since rhinal there is no stenosis shortness of breath chest pain or other concerns. Review of systems: As per history of present illness and below otherwise all systems reviewed and negative. Past medical history: As per history of present illness and as reviewed below otherwise noncontributory. Surgical history: As per history of present illness and as reviewed below otherwise noncontributory. Social history: No reported history of drug or alcohol abuse. Family history: As per history of present illness and as reviewed below otherwise noncontributory. Physical exam: HEENT: Atraumatic, normocephalic, pupils reactive, negative for conjunctival pallor or scleral icterus, mucous membranes moist, throat clear, neck supple, nontender, trachea midline. Lungs: Clear to auscultation, breath sounds equal bilaterally, chest nontender. Heart: S1S2, regular, negative for clicks, rubs, or JVD. Abdomen: Soft, nondistended, nontender. Negative for masses or hepatosplenomegaly. Negative for costovertebral tenderness. Pelvis: Stable nontender. Genitourinary: Deferred. Rectal: Deferred. Extremities: Atraumatic, negative for cords or calf pain. Neurovascular unremarkable. Neuro: Awake, alert, oriented. Cranial nerves II through XII unremarkable. Cerebellum unremarkable. Motor and sensory unremarkable throughout. Exam nonfocal. Diagnostics: CBC CMP UA hCG chest x-ray BNP Therapeutics: None Impression: #1 medical screening exam Definitive disposition and diagnosis as appropriate pending reevaluation and review of above. - Related Data Allergies Allergy/AdvReac Type Severity Reaction Status Date / Time Penicillins Allergy Rash Verified 07/21/19 23:08 Home Meds: Home Meds Ibuprofen 1 tab PO ASDIRECTED PRN 03/02/19 [History] Past Medical History - Past Health History Medical/Surgical History: Denies Medical/Surgical History HEENT History: Reports: Other (See Below) Other HEENT History: wears glasses/contacts Cardiovascular History: Reports: None Respiratory History: Reports: None Gastrointestinal History: Reports: None Genitourinary History: Reports: Renal Calculus, STD, UTI, Recurrent, Other (See Below) Other Genitourinary History: HPV [employer] History: Reports: None Musculoskeletal History: Reports: None Other Musculoskeletal History: SCIATICA Neurological History: Reports: None Psychiatric History: Reports: Anxiety Endocrine/Metabolic History: Reports: Obesity/BMI 30+ Hematologic History: Reports: None Immunologic History: Reports: None Oncologic (Cancer) History: Reports: None Dermatologic History: Reports: None - Infectious Disease History Infectious Disease History: Reports: None - Past Surgical History Head Surgeries/Procedures: Reports: None HEENT Surgical History: Reports: Oral Surgery Cardiovascular Surgical History: Reports: None Respiratory Surgical History: Reports: None GI Surgical History: Reports: Cholecystectomy, Hernia, Abdominal, Other (See Below) Other GI Surgeries/Procedures: perirectal cyst x2, cruz & umbilical hernia repair Female Surgical History: Reports: None Endocrine Surgical History: Reports: None Neurological Surgical History: Reports: None Oncologic Surgical History: Reports: None Dermatological Surgical History: Reports: None Social & Family History - Family History Family Medical History: Noncontributory Psychiatric: Reports: Bipolar, Schizophrenia - Tobacco Use Smoking Status *Q: Never Smoker Second Hand Smoke Exposure: No - Caffeine Use Caffeine Use: Reports: None - Recreational Drug Use Recreational Drug Use: No ED ROS GENERAL - Review of Systems Review Of Systems: ROS reveals no pertinent complaints other than HPI. ED EXAM, GENERAL - Physical Exam Exam: See Below (See dictated) Course - Vital Signs Last Recorded V/S: Last Vital Signs Temp 36.6 C 07/21/19 23:07 Pulse 89 07/21/19 23:07 Resp 20 07/21/19 23:07 BP 183/99 H 07/21/19 23:16 Pulse Ox 95 07/21/19 23:07 - Orders/Labs/Meds Orders: Active Orders 24 hr Category Date Time Status CULTURE URINE [RM] Stat Lab 07/22/19 00:25 Received Labs: Laboratory Tests 07/21/19 07/21/19 07/21/19 Range/Units 23:56 23:56 23:56 WBC 15.23 H (4.0-11.0) K/uL RBC 4.95 (4.30-5.90) M/uL Hgb 11.4 L (12.0-16.0) g/dL Hct 36.8 (36.0-46.0) % MCV 74.3 L (80.0-98.0) fL MCH 23.0 L (27.0-32.0) pg MCHC 31.0 (31.0-37.0) g/dL RDW Std Deviation 39.2 (28.0-62.0) fl RDW Coeff of Zac 15 (11.0-15.0) % Plt Count 358 (150-400) K/uL MPV 9.30 (7.40-12.00) fL Neut % (Auto) 69.1 (48.0-80.0) % Lymph % (Auto) 22.3 (16.0-40.0) % [place] % (Auto) 5.3 (0.0-15.0) % Eos % (Auto) 3.0 (0.0-7.0) % Baso % (Auto) 0.3 (0.0-1.5) % Neut # (Auto) 10.5 H (1.4-5.7) K/uL Lymph # (Auto) 3.4 H (0.6-2.4) K/uL [place] # (Auto) 0.8 (0.0-0.8) K/uL Eos # (Auto) 0.5 (0.0-0.7) K/uL Baso # (Auto) 0.0 (0.0-0.1) K/uL Nucleated RBC % 0.0 /100WBC Nucleated RBCs # 0 K/uL Sodium 140 (136-145) mmol/L Potassium 3.9 (3.5-5.1) mmol/L Chloride 103 (98-107) mmol/L Carbon Dioxide 27.5 (21.0-32.0) mmol/L BUN 14 (7.0-18.0) mg/dL Creatinine 1.0 (0.6-1.0) mg/dL Est Cr Clr Drug Dosing 80.72 mL/min Estimated GFR (MDRD) > 60.0 ml/min Glucose 99 (74-106) mg/dL Calcium 9.0 (8.5-10.1) mg/dL Total Bilirubin 0.3 (0.2-1.0) mg/dL AST 17 (15-37) IU/L ALT 40 (14-63) IU/L Alkaline Phosphatase 106 (46-116) U/L B-Natriuretic Peptide 23 (<100) PG/ML Total Protein 6.6 (6.4-8.2) g/dL Albumin 3.2 L (3.4-5.0) g/dL Globulin 3.4 (2.6-4.0) g/dL Albumin/Globulin Ratio 0.9 (0.9-1.6) HCG, Qual (NEG) Urine Color Urine Appearance Urine pH (5.0-8.0) Ur Specific [place] (1.001-1.035) Urine Protein (NEGATIVE) mg/dL Urine Glucose (UA) (NEGATIVE) mg/dL Urine Ketones (NEGATIVE) mg/dL Urine Occult Blood (NEGATIVE) Urine Nitrite (NEGATIVE) Urine Bilirubin (NEGATIVE) Urine Urobilinogen (<2.0) EU/dL Ur Leukocyte Esterase (NEGATIVE) Urine RBC (0-2/HPF) Urine WBC (0-5/HPF) Ur Epithelial Cells (NONE-FEW) Urine Bacteria (NEGATIVE) 07/21/19 07/22/19 Range/Units 23:56 00:25 WBC (4.0-11.0) K/uL RBC (4.30-5.90) M/uL Hgb (12.0-16.0) g/dL Hct (36.0-46.0) % MCV (80.0-98.0) fL MCH (27.0-32.0) pg MCHC (31.0-37.0) g/dL RDW Std Deviation (28.0-62.0) fl RDW Coeff of Zac (11.0-15.0) % Plt Count (150-400) K/uL MPV (7.40-12.00) fL Neut % (Auto) (48.0-80.0) % Lymph % (Auto) (16.0-40.0) % [place] % (Auto) (0.0-15.0) % Eos % (Auto) (0.0-7.0) % Baso % (Auto) (0.0-1.5) % Neut # (Auto) (1.4-5.7) K/uL Lymph # (Auto) (0.6-2.4) K/uL [place] # (Auto) (0.0-0.8) K/uL Eos # (Auto) (0.0-0.7) K/uL Baso # (Auto) (0.0-0.1) K/uL Nucleated RBC % /100WBC Nucleated RBCs # K/uL Sodium (136-145) mmol/L Potassium (3.5-5.1) mmol/L Chloride (98-107) mmol/L Carbon Dioxide (21.0-32.0) mmol/L BUN (7.0-18.0) mg/dL Creatinine (0.6-1.0) mg/dL Est Cr Clr Drug Dosing mL/min Estimated GFR (MDRD) ml/min Glucose (74-106) mg/dL Calcium (8.5-10.1) mg/dL Total Bilirubin (0.2-1.0) mg/dL AST (15-37) IU/L ALT (14-63) IU/L Alkaline Phosphatase (46-116) U/L B-Natriuretic Peptide (<100) PG/ML Total Protein (6.4-8.2) g/dL Albumin (3.4-5.0) g/dL Globulin (2.6-4.0) g/dL Albumin/Globulin Ratio (0.9-1.6) HCG, Qual NEGATIVE (NEG) Urine Color YELLOW Urine Appearance SLT CLOUDY Urine pH 6.0 (5.0-8.0) Ur Specific [place] 1.020 (1.001-1.035) Urine Protein NEGATIVE (NEGATIVE) mg/dL Urine Glucose (UA) NEGATIVE (NEGATIVE) mg/dL Urine Ketones NEGATIVE (NEGATIVE) mg/dL Urine Occult Blood SMALL H (NEGATIVE) Urine Nitrite NEGATIVE (NEGATIVE) Urine Bilirubin NEGATIVE (NEGATIVE) Urine Urobilinogen 0.2 (<2.0) EU/dL Ur Leukocyte Esterase TRACE H (NEGATIVE) Urine RBC 1-4 (0-2/HPF) Urine WBC 0-2 (0-5/HPF) Ur Epithelial Cells FEW (NONE-FEW) Urine Bacteria RARE (NEGATIVE) Departure - Departure Time of Disposition: 01:28 Disposition: Home, Self-Care 01 Condition: Good Clinical Impression: Encounter for medical screening examination - Discharge Information Referrals: PCP,None [Primary Care Provider] - Forms: ED Department Discharge Additional Instructions: The following information is given to patients seen in the emergency department who are being discharged to home. This information is to outline your options for follow-up care. We provide all patients seen in our emergency department with a follow-up referral. The need for follow-up, as well as the timing and circumstances, are variable depending upon the specifics of your emergency department visit. If you don't have a primary care physician on staff, we will provide you with a referral. We always advise you to contact your personal physician following an emergency department visit to inform them of the circumstance of the visit and for follow-up with them and/or the need for any referrals to a consulting specialist. The emergency department will also refer you to a specialist when appropriate. This referral assures that you have the opportunity for followup care with a specialist. All of these measure are taken in an effort to provide you with optimal care, which includes your followup. Under all circumstances we always encourage you to contact your private physician who remains a resource for coordinating your care. When calling for followup care, please make the office aware that this follow-up is from your recent emergency room visit. If for any reason you are refused follow-up, please contact the [facility] emergency department at and asked to speak to the emergency department charge nurse. Follow-up primary medical doctor call to schedule appointment return as needed as discussed - My Orders Last 24 Hours: My Active Orders 07/22/19 00:25 CULTURE URINE [RM] Stat - Assessment/Plan Last 24 Hours: My Active Orders 07/22/19 00:25 CULTURE URINE [RM] Stat
[2019-07-22 00:26] LABS: CHLORIDE,CL 103 mmol/L (98-107); SODIUM,NA 140 mmol/L (136-145)
--- NOTE | 2019-07-22 01:26 | CR ---
INDICATION: pain/SOB INDICATION: Pain/shortness of breath. TECHNIQUE: Chest 1 view. COMPARISON: 05/06/2018. FINDINGS: Cardiovascular and mediastinum: Heart size and vasculature are normal in caliber and appearance. Mediastinum is within normal limits. Lungs and pleural space: Lungs are clear. No sign of infiltrate or mass. No sign of pleural effusion. No pneumothorax. Bones and soft tissues: No significant findings. IMPRESSION: Lungs are clear. Dictated by Zeeshan Negro MD @ 07/22/2019 1:24:09 AM Dictated by: Zeeshan Negro MD @ 07/22/2019 01:24:26 (Electronically Signed)
[2019-07-22 01:33] VITALS: BP 176/95
== END 2019-07-22 01:43 | disposition home or self-care (01) ==
LOC: MW.ED 22:56
DX: Z13.9 Encounter for screening, unspecified (principal); Z88.0 Allergy status to penicillin; Z79.899 Other long term (current) drug therapy; Z87.442 Personal history of urinary calculi
CPT/HCPCS: 36415; 71045; 71045-26; 80053; 81001; 83880; 84703; 85025; 87086; 99282; 99283-25